=== PATIENT | male | born 1985 | race Two or more races ===

== ENCOUNTER 2019-05-10 17:51 | Inpatient (IN) | payer SELFPAY ==
[~2019-05-10] VITALS: Ht 157.5 cm; Wt 72.0 kg
[2019-05-10 18:38] LABS: Basophils # (auto) 0.1 uL; Basophils % (auto) 0.8 % (0.0-2.0); Eosinophils # (auto) 0.1 uL; Hematocrit 50.9 % (41.0-53.0); Hemoglobin 17.6 g/dL (13.5-17.5); Lymphocytes # (auto) 2.2 uL; Lymphocytes % (auto) 28.3 % (10.0-50.0); Mean Corpuscular Hgb Conc. 34.5 g/dL (32.0-36.0); Mean Corpuscular Volume 92.9 fL (80.0-100.0); Monocytes # (auto) 0.5 uL; Monocytes % (auto) 5.8 % (0.0-12.0); Neutrophils % (auto) 64.1 % (37.0-80.0); Nucleated Red Blood Cells % 0.1 %; Platelet Count (auto) 285 10^3/uL (140-450); Red Blood Cells 5.48 10^6/uL (4.5-5.90); Red Cell Distribution Width 13.6 % (11.8-14.3); White Blood Cell 7.7 10^3/uL (4.4-10.8)
[2019-05-10 18:54] LABS: INR < 0.93 (0.9-1.15); Partial Thromboplastin Time 26.5 sec (23.64-32.05)
[2019-05-10 19:00] LABS: Alanine Aminotransferase 69 U/L (16-61); Albumin 3.9 g/dL (3.4-5.0); Anion Gap 9 (5-15); Aspartate Aminotransferase 45 U/L (15-37); BUN/Creatinine Ratio 13.3; Blood Urea Nitrogen 17 mg/dL (7-18); Carbon Dioxide 25 mmol/L (21-32); Chloride 98 mmol/L (98-107); GFR African American 84 mL/min; GFR Non-African American 69 mL/min; Potassium 4.4 mmol/L (3.5-5.1); Sodium 132 mmol/L (136-145)
[2019-05-10 19:01] LABS: Urine Bacteria NONE SEEN /hpf (None Seen); Urine Blood Negative /uL (Negative); Urine Specific Gravity 1.029 (1.001-1.035); Urine WBC <1 /hpf (0 - 3)
[2019-05-10 19:03] LABS: Alcohol, Urine < 3.0 mg/dL (0-5); Amphetamine Screen, Urine NEGATIVE (NEGATIVE); Barbiturate Scree,Urine NEGATIVE (NEGATIVE); Benzodiazephine Screen, Urine NEGATIVE (NEGATIVE); Cannabinoid Screen, Urine NEGATIVE (NEGATIVE); Cocaine Screen, Urine NEGATIVE (NEGATIVE); Opiate Scree,Urine NEGATIVE (NEGATIVE); Phencyclidine Screen, Urine NEGATIVE (NEGATIVE)
[2019-05-10 19:05] LABS: Alkaline Phosphatase 179 U/L (45-117); Bilirubin, Total 0.3 mg/dL (0.2-1.0); Total Protein 8.1 g/dL (6.4-8.2)
[2019-05-10 19:52] LABS: Glucose 500 mg/dL (74-106)
[2019-05-11] MEDS ORDERED: SODIUM CHLORIDE 0.9% 1,000 ML IV ONE (00:30)
[2019-05-11] MEDS ORDERED: InsuLIN REG 1unit/0.01ml Soln (100units/ml) IV ONE (00:45)
[2019-05-11] MEDS ORDERED: LEVOFLOXACIN 750MG 150 ML IV ONE (04:15)
[2019-05-11] MEDS ORDERED: ONDANSETRON HCL 4 MG/2 ML VIAL IV PRN (05:00)
[2019-05-11] MEDS ORDERED: MORPHINE SULF INJ 2 MG/ML SYRINGE 1ML IV PRN (05:00)
[2019-05-11] MEDS ORDERED: ACETAMINOPHEN 500 MG TAB PO PRN (05:00)
[2019-05-11] MEDS ORDERED: HYDROcodone-ACET 5/325MG TAB PO PRN (05:00)
[2019-05-11] MEDS ORDERED: DEXTROSE (50%) 50ML SYRG IV PRN (05:00)
[2019-05-11 05:25] VITALS: BP 119/81
[2019-05-11] MEDS ORDERED: ASPI325T4 PO (06:04)
[2019-05-11] MEDS ORDERED: METF-370 PO (06:04)
--- NOTE | 2019-05-11 06:04 | NUR ---
MS admit from [facility] admitted to tele/MS. Patient oriented to MIREYA ANGULO, RN primary RN, unit, room, bed, and unit policies regarding patient care and visiting hours. Patient weighed by bedscale and encouraged to call if they need something. All questions and concerns addressed, patient verbalized understanding. Note: Patient is A&O x4. Currently on room air with no s/s of distress. denies SOB at this time, but states that it "comes and goes". Reports 5/10 substernal chest pain that radiates to left side of chest. Declines pain medication at this time. 22 gauge IV in right forearm in place and patent. Flushed with 10ml NS. POC discussed with patient who verbalizes understanding. Bed is in low locked position with side rails up x2. Call light is within reach. Will continue to monitor for changes PRN.
[2019-05-11] MEDS: ACCU-CHEK COMFORT CURVE STRIP VI SCH ×4 (06:49→21:49)
[2019-05-11] MEDS: InsuLIN REG 1unit/0.01ml Soln (100units/ml) SC SCH ×4 (06:53→21:49)
[2019-05-11] MEDS: ALBUTEROL SULF 2.5 MG/0.5ML(0.5%) NEB SOLN NEB SCH ×3 (07:22→19:19)
[2019-05-11] MEDS: IPRATROPIUM BROM 0.5 MG/2.5ML INH SOL NEB SCH ×3 (07:23→19:20)
[2019-05-11 07:37] VITALS: BP 119/81
[2019-05-11 09:00] VITALS: BP 120/60
[2019-05-11] MEDS: cefTRIAXone 1GM/50ML D5W 50 ML IV SCH (09:07)
[2019-05-11] MEDS: FAMOTIDINE 20 MG TAB PO SCH (09:08)
[2019-05-11] MEDS: AZITHROMYCIN 500MG/ 250ML 250 ML IV SCH (10:11)
[2019-05-11 13:00] VITALS: BP 115/71
[2019-05-11 17:00] VITALS: BP 109/57
--- NOTE | 2019-05-11 19:55 | NUR ---
assumed care, pt. awake, no c/o pain, not in distress.
[2019-05-11 22:00] VITALS: BP 98/71
[2019-05-12 05:42] VITALS: BP 96/62
[2019-05-12] MEDS: InsuLIN REG 1unit/0.01ml Soln (100units/ml) SC SCH ×3 (06:07→17:16)
[2019-05-12] MEDS: ACCU-CHEK COMFORT CURVE STRIP VI SCH ×2 (06:07→11:30)
[2019-05-12] MEDS: ALBUTEROL SULF 2.5 MG/0.5ML(0.5%) NEB SOLN NEB SCH ×2 (06:43→11:18)
[2019-05-12] MEDS: IPRATROPIUM BROM 0.5 MG/2.5ML INH SOL NEB SCH ×2 (06:43→11:18)
[2019-05-12 07:05] LABS: Basophils # (auto) 0 uL; Basophils % (auto) 0.4 % (0.0-2.0); Eosinophils # (auto) 0.1 uL; Eosinophils % (auto) 1.2 % (0.0-7.0); Hematocrit 48.1 % (41.0-53.0); Hemoglobin 16.4 g/dL (13.5-17.5); Lymphocytes # (auto) 2.2 uL; Lymphocytes % (auto) 33.6 % (10.0-50.0); Mean Corpuscular Hemoglobin 31.5 pg (28.0-32.0); Mean Corpuscular Volume 92.6 fL (80.0-100.0); Monocytes # (auto) 0.5 uL; Monocytes % (auto) 6.9 % (0.0-12.0); Neutrophils # (auto) 3.8 uL; Neutrophils % (auto) 57.9 % (37.0-80.0); Platelet Count (auto) 247 10^3/uL (140-450); Red Cell Distribution Width 12.9 % (11.8-14.3); White Blood Cell 6.6 10^3/uL (4.4-10.8)
[2019-05-12 07:09] LABS: Calcium 8.7 mg/dL (8.5-10.1)
[2019-05-12 09:00] VITALS: BP 103/70
[2019-05-12] MEDS: cefTRIAXone 1GM/50ML D5W 50 ML IV SCH (09:17)
[2019-05-12] MEDS: FAMOTIDINE 20 MG TAB PO SCH (09:28)
[2019-05-12 10:16] VITALS: BP 103/70
[2019-05-12] MEDS: AZITHROMYCIN 500MG/ 250ML 250 ML IV SCH (10:17)
[2019-05-12 13:00] VITALS: BP 107/68
--- NOTE | 2019-05-12 15:00 | NUR ---
assessment Patient is a 33 year old male who is alert and oriented. Patients cognitive abilities are intact. Prior to admission patient lived home with family and functioned independently. Patient informed me he is able to care for his own ADLs. Per patient he will return home to his prior living arrangements post discharge and family will transport him home. Patient has no insurance. Patient has been assessed by Montana Dee of [facility]. Patient may qualify for [employer] if she brings back all her paperwork. I have provided patient with resources for [facility], Dr. Kelly, and [facility] urgent care for follow up visits. I have provided patient with a prescription card from community assistance program. Patient has no post discharge needs at this time. I informed patient he has a right to speak to a vp digital marketing social media and crm regarding all care. I informed patient he has a right to participate in any and all discharge planning. Patient does not have a POA and advanced directive. I have offered patient information on POA and advanced directives. I informed the patient the advantages and benefits of having an Advanced Directive. Patient verbalized understanding and agreed to discharge plan. Addendum: 05/12/19 at 1501 by Trinidad STILES Amended: Links added.
--- NOTE | 2019-05-12 17:33 | NUR ---
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 WAITING FOR HIS UNCLE TO PICK HIM UP.
--- NOTE | 2019-05-12 17:45 | NUR ---
Discharge instructions given as ordered. Encourage to follow up with PMD as instructed. All questions and concerns addressed. Patient verbalized understanding. Medication reconciliation form completed and copy given to patient. Patient taken to vehicle via wheelchair with all personal belongings. No distress noted at time of departure. refused staff assistance going off unit, left unit ambulatory.
== END 2019-05-12 17:45 | disposition home or self-care (01) | DRG 194 ==
LOC: ER 17:54 → OVERFLOW 17:55 → CENTRAL 05-11 05:25
PROVIDERS: ADMIT Nurse Practitioner Acute Care; ATTEND Internal Medicine
DX: J18.1 Lobar pneumonia, unspecified organism (principal); E87.1 Hypo-osmolality and hyponatremia; J45.901 Unspecified asthma with (acute) exacerbation; R65.10 Systemic inflammatory response syndrome (SIRS) of non-infectious origin without acute organ dysfunction; R06.03 Acute respiratory distress; R07.89 Other chest pain; E10.21 Type 1 diabetes mellitus with diabetic nephropathy; Z79.82 Long term (current) use of aspirin; Z79.84 Long term (current) use of oral hypoglycemic drugs
CPT/HCPCS: 36415; 36600; 71046; 80048; 80053; 80307; 81001; 82010; 82805; 82962; 83036; 83605; 84443; 84484; 85025; 85610; 85730; 87040; 87804; 93005; 94640; 96361; 96365; 96366; 96367; 96375; G0378; J0696; J1815; J1956